=== PATIENT | male | born 1995 | race Caucasian/White ===

== ENCOUNTER 2017-01-20 20:12 | Emergency (ER) | payer OTHER ==
[~2017-01-20] VITALS: Ht 177.8 cm; Wt 79.0 kg
[2017-01-20 20:16] VITALS: Ht 177.8 cm; Wt 79.0 kg
[2017-01-20] MEDS ORDERED: SOD CHLORIDE 0.9% 1,000 ML IV STA (21:01)
[2017-01-20] MEDS ORDERED: ONDANSETRON 4 MG INJ IV STA (21:01)
[2017-01-20] MEDS ORDERED: KETOROLAC 30 MG INJ IV STA (21:01)
--- NOTE | 2017-01-20 21:19 | ERD ---
ER Documentation Chief Complaint Date/Time DATE: 01/20/17 TIME: 21:11 Chief Complaint fever/headache/sore throat x 2 days HPI This is a 21-year-old male who presents to the emergency department for complaints of fever, sore throat, mild cough, ear pressure and headache which began 2 days ago. He states the headache diffuse, throbbing, and is worse when bending down. Patient states that his throat pain as a constant sharp 5 out of 10 which is worse with swallowing. He is attempted to treat his fever with Tylenol at home. Last dose was this morning. Patient also reports sharp intermittent right lower quadrant abdominal pain which also began 2 days ago and was sudden in onset. He states that he has never experienced abdominal pain previously and denies any past abdominal surgeries. Patient denies any nausea, vomiting, diarrhea,dysuria, hematuria, or bloody stool. ROS All systems reviewed and are negative except as per history of present illness. Allergies Allergies: Coded Allergies: No Known Drug Allergies (Verified Allergy, Unknown, 01/20/17) PMhx/Soc Medical and Surgical Hx: pt denies Medical Hx, pt denies Surgical Hx Hx Alcohol Use: No Hx Substance Use: No Hx Tobacco Use: No Smoking Status: Never smoker Physical Exam Vitals Vital Signs Date Time Temp Pulse Resp B/P Pulse Ox O2 Delivery O2 Flow Rate FiO2 01/20/17 20:16 102.5 109 20 127/68 99 Physical Exam Const: Well-developed, well-nourished, in no acute distress Head: Atraumatic. Patient has full range of motion at cervical spine. No evidence of meningismus. Eyes: Normal Conjunctiva ENT: Normal External Ears, Nose and Mouth. Posterior pharynx markedly erythematous with bilateral 1+ tonsil edema and exudate bilaterally. Painful right sided anterior lymphadenopathy. Neck: Full range of motion..~ No meningismus. Resp: Clear to auscultation bilaterally, no wheezes, rhonchi, or Cardio: Regular rate and rhythm, no murmurs Abd: Soft, mild tenderness to palpation along the right lower quadrant. No rebound tenderness. No peritoneal signs. Negative Ignacio sign. non distended. Normal bowel sounds Skin: No petechiae or rashes Back: No midline or flank tenderness Ext: No cyanosis, or edema Neur: Awake and alert Psych: Normal Mood and Affect Result Diagram: [id number] Results 24 hrs Laboratory Tests Test 01/20/17 21:00 01/20/17 21:15 Urine Color YELLOW Urine Clarity CLEAR Urine pH 5.0 Urine Specific [place] 1.028 Urine Ketones NEGATIVEmg/dL Urine Nitrite NEGATIVEmg/dL Urine Bilirubin NEGATIVEmg/dL Urine Urobilinogen 2+mg/dL Urine Leukocyte Esterase NEGATIVELeu/ul Urine Microscopic RBC 3/HPF Urine Microscopic WBC 0/HPF Urine Mucus FEW/HPF Urine Hemoglobin 1+mg/dL Urine Glucose NEGATIVEmg/dL Urine Total Protein NEGATIVEmg/dl White Blood Count 7.410^3/ul Red Blood Count 5.2110^6/ul Hemoglobin 16.5g/dl Hematocrit 47.1% Mean Corpuscular Volume 90.4fl Mean Corpuscular Hemoglobin 31.7pg Mean Corpuscular Hemoglobin Concent 35.0g/dl Red Cell Distribution Width 12.8% Platelet Count 01337^3/UL Mean Platelet Volume 9.4fl Neutrophils % 62.1% Lymphocytes % 25.8% Monocytes % 11.1% Eosinophils % 0.1% Basophils % 0.4% Neutrophils # 4.610^3/ul Lymphocytes # 1.910^3/ul Monocytes # 0.810^3/ul Eosinophils # 0.010^3/ul Basophils # 0.010^3/ul Nucleated Red Blood Cells # 0.010^3/ul Prothrombin Time 12.2Sec Prothrombin Time Ratio 1.0 INR International Normalized Ratio 0.91 Activated Partial Thromboplast Time 38.2Sec Sodium Level 142mmol/L Potassium Level 4.0mmol/L Chloride Level 97mmol/L Carbon Dioxide Level 28mmol/L Anion Gap 21 Blood Urea Nitrogen 15mg/dl Creatinine 0.98mg/dl Glucose Level 96mg/dl Lactic Acid Level 1.1mmol/L Calcium Level 8.9mg/dl Total Bilirubin 0.8mg/dl Direct Bilirubin 0.00mg/dl Indirect Bilirubin 0.8mg/dl Aspartate Amino Transf (AST/SGOT) 25IU/L Alanine Aminotransferase (ALT/SGPT) 39IU/L Alkaline Phosphatase 93IU/L Total Protein 7.8g/dl Albumin 4.6g/dl Globulin 3.20g/dl Albumin/Globulin Ratio 1.43 Lipase 22U/L Current Medications Medications (Trade) Dose Ordered Sig/Ryan Route PRN Reason Start Time Stop Time Status Last Admin Dose Admin Sodium Chloride (NS) 1,000 ml @ 1,000 mls/hr Q1H STAT IV 01/20/17 21:01 01/20/17 22:00 DC 01/20/17 21:29 Ondansetron HCl (Zofran Inj) 4 mg ONCE STAT IV 01/20/17 21:01 01/20/17 21:07 DC 01/20/17 21:30 Ketorolac Tromethamine (Toradol) 30 mg ONCE STAT IV 01/20/17 21:01 01/20/17 21:07 DC 01/20/17 21:30 Procedures/MDM PROCEDURE: CT ABDOMEN/PELVIS WITHOUT CONTRAST CLINICAL INDICATION: 21-year-old male with right lower quadrant pain. TECHNIQUE: The study was performed utilizing a [employer] 64-slice CT scanner. Direct axial sections were obtained through the abdomen and pelvis without the use of intravenous contrast material. Sagittal and coronal reformations were obtained. One or more of the following dose reduction techniques were utilized: automated exposure control, adjustment of the mA and/ or kV according to patient's size or use of iterative reconstruction technique. The images were reviewed on a PACS workstation. CTD/vol = 10.6 mGy; Total Exam DLP = 624.1 mGy-cm. COMPARISON: None. FINDINGS: The lung bases are unremarkable. There is no evidence for significant pleural effusion. The liver has a normal size and contour without focal areas of abnormal density. No intrahepatic nor extrahepatic biliary ductal dilatation is seen. The gallbladder demonstrates no wall thickening nor pericholecystic fluid. No biliary stones are evident. The pancreas is without areas of abnormal attenuation. The spleen is identified and has a normal size without abnormal density. The adrenal glands are unremarkable. The kidneys are without abnormal density. No hydroureteronephrosis nor nephroureterolithiasis is evident. The urinary bladder contains a small volume of urine. There is no evidence for bowel obstruction. The appendix is visualized and is without abnormal thickening or surrounding inflammatory reaction. There is no significant free fluid. The prostate is not enlarged. The aortoiliac vessels are without aneurysmal dilatation. The osseous structures are intact. IMPRESSION: Unremarkable noncontrast CT scan of the abdomen and pelvis. .John Lawson MD, MD Date Time Electronically viewed and signed by .John Lawson MD, MD on 01/20/2017 22:39 .M/ CC: SEBASTIAN BIRMINGHAM PA-C This is a 21-year-old male presents the emergency department for complaints of fever, headache, sore throat, and right lower quadrant abdominal pain which began 2 days ago. Upon arrival, patient's temperature was measured at 102.5, his pulse was 109 and patient was flagged for SIRS. He was normotensive and non -hypoxic. Patient was well nourished and nontoxic appearing upon arrival. Physical exam was significant for pharyngeal erythema, tonsillar swelling, and exudate bilaterally as well as anterior painful lymphadenopathy. Patient also displayed right lower quadrant tenderness upon initial exam. Fluids were initiated immediately after exam. Patient received a bolus while awaiting lab results. Lactic acid measured 1.1 and therefore code sepsis was not initiated. CBC showed no evidence of systemic infection or severe anemia. CMP showed no evidence of electrolyte abnormalities, severe acidosis, alkalosis , renal failure, or liver disease. Lipase showed no evidence of acute pancreatitis. UA showed no evidence of acute infection or hematuria. CT of the abdomen and pelvis was unremarkable for any evidence of acute appendicitis or other abnormality. Upon reexamination, patient reports improvement of symptoms and abdominal tenderness has decreased. At this time low suspicion for acute appendicitis or other surgical abdomen however I discussed with the patient at length return precautions and recommended to return for an abdominal recheck if pain with fever should continue. The patient's clinical presentation is consistent with bacterial pharyngitis, fever, and abdominal pain of unknown etiology. The patient does not exhibit any clinical signs or symptoms concerning for serious bacterial infection or systemic illness. Based on history and clinical exam findings the patient does not appear to have evidence of pneumonia, urinary tract infection, bacteremia, sepsis, or meningitis. The patient's headache is unlikely related to serious etiology. He stated a mild intermittent headache which is worse when bending down. The patient does not exhibit any clinical signs or symptoms, and has no risk factors to suggest headache etiology such as subarachnoid hemorrhage, acute vertebral or carotid dissection, intracranial mass, epidural, subdural hematoma, dural venous sinus thrombosis, giant cell arteritis, or pseudotumor cerebri. Patient's neuro exam unremarkable. Headache likely due to sinus congestion. Patient to begin antibiotics for suspected bacterial pharyngitis. Continue Motrin and Tylenol for fever and symptom control. Based on patient's history of present illness and physical examination the decision was made to discharge. The patient was re-evaluated after ED treatment and stabilizing measures, and symptoms have improved. There is no evidence of life threatening injuries or illnesses at this time. On re-examination, patient resting in no distress, stable vital signs, reports feeling better and safe for discharge with outpatient follow up with PMD in 1-2 days. Patient given return precautions. All lab and imaging reports provided to the patient. Departure Diagnosis: Primary Impression: Fever Fever type: unspecified Qualified Code: R50.9 - Fever, unspecified fever cause Additional Impressions: Sore throat Abdominal pain Abdominal location: right lower quadrant Qualified Code: R10.31 - Right lower quadrant abdominal pain Headache Headache type: unspecified Headache chronicity pattern: acute headache Intractability: not intractable Qualified Code: R51 - Acute nonintractable headache, unspecified headache type SEBASTIAN BIRMINGHAM PA-C Jan 20, 2017 21:19
[2017-01-20 21:50] LABS: ADD SCAN DIFF NO
[2017-01-20 21:58] LABS: ADD UMIC YES; UR ASCORBIC ACID NEGATIVE (NEGATIVE); UR BILIRUBIN (Dip) NEGATIVE (NEGATIVE); UR BLOOD (Dip) 1+ mg/dL (NEGATIVE); UR CLARITY CLEAR (CLEAR); UR COLOR YELLOW (YELLOW); UR GLUCOSE (Dip) NEGATIVE (NEGATIVE); UR KETONES (Dip) NEGATIVE (NEGATIVE); UR LEUKOCYTE ESTERASE (Dip) NEGATIVE Leu/ul (NEGATIVE); UR MUCUS FEW /HPF (NONE SEEN); UR NITRITE (Dip) NEGATIVE (NEGATIVE); UR RBC 3 /HPF (0-5); UR SPECIFIC GRAVITY (Dip) 1.028 (1.003-1.030); UR TOTAL PROTEIN (Dip) NEGATIVE (NEGATIVE); UR UROBILINOGEN (Dip) 2+ mg/dL (NEGATIVE)
[2017-01-20 21:58] LABS: BASOPHILS % 0.4 % (0.0-2.0); EOSINOPHILS % 0.1 % (0.0-7.0); HEMATOCRIT 47.1 % (42.0-52.0); HEMOGLOBIN 16.5 g/dl (14.0-18.0); LYMPHOCYTES # 1.9 10^3/ul (0.8-2.9); LYMPHOCYTES % 25.8 % (15.0-51.0); MEAN CORPUSCULAR HEMOGLOBIN 31.7 pg (29.0-33.0); MEAN CORPUSCULAR VOLUME 90.4 fl (82.0-101.0); MEAN PLATELET VOLUME 9.4 fl (7.4-10.4); MONOCYTE # 0.8 10^3/ul (0.3-0.9); MONOCYTES % 11.1 % (0.0-11.0); NEUTROPHIL # 4.6 10^3/ul (1.6-7.5); NEUTROPHILS % 62.1 % (39.0-77.0); PLATELET COUNT 205 10^3/UL (140-415); RED BLOOD COUNT 5.21 10^6/ul (4.70-6.10); RED CELL DISTRIBUTION WIDTH 12.8 % (11.5-14.5); WHITE BLOOD COUNT 7.4 10^3/ul (4.8-10.8)
[2017-01-20 22:11] LABS: INR 0.91; PROTIME 12.2 Sec (12.2-14.2)
[2017-01-20 22:12] LABS: PARTIAL THROMBOPLASTIN TIME 38.2 Sec (25.0-35.0)
[2017-01-20 22:15] LABS: ALBUMIN 4.6 g/dl (3.3-4.9); ALBUMIN/GLOBULIN RATIO 1.43; BILIRUBIN,INDIRECT 0.8 mg/dl (0-1.1); BILIRUBIN,TOTAL 0.8 mg/dl (0.2-1.3); CALCIUM 8.9 mg/dl (8.4-10.2); CREATININE 0.98 mg/dl (0.61-1.24); TOTAL PROTEIN 7.8 g/dl (6.1-8.1)
--- NOTE | 2017-01-20 22:40 | RADRPT ---
PROCEDURE: CT ABDOMEN/PELVIS WITHOUT CONTRAST CLINICAL INDICATION: 21-year-old male with right lower quadrant pain. TECHNIQUE: The study was performed utilizing a [employer] VCT 64-slice CT scanner. Direct axia l sections were obtained through the abdomen and pelvis without the use of intravenous contrast mate rial. Sagittal and coronal reformations were obtained. One or more of the following dose reduction t echniques were utilized: automated exposure control, adjustment of the mA and/or kV according to pat ient's size or use of iterative reconstruction technique. The images were reviewed on a PACS workst [employer]. CTD/vol = 10.6 mGy; Total Exam DLP = 624.1 mGy-cm. COMPARISON: None. FINDINGS: The lung bases are unremarkable. There is no evidence for significant pleural effusion. The liver has a normal size and contour without focal areas of abnormal density. No intrahepatic nor extrahepa tic biliary ductal dilatation is seen. The gallbladder demonstrates no wall thickening nor perichole cystic fluid. No biliary stones are evident. The pancreas is without areas of abnormal attenuation. The spleen is identified and has a normal size without abnormal density. The adrenal glands are unr emarkable. The kidneys are without abnormal density. No hydroureteronephrosis nor nephroureterolithi asis is evident. The urinary bladder contains a small volume of urine. There is no evidence for starr l obstruction. The appendix is visualized and is without abnormal thickening or surrounding inflamm atory reaction. There is no significant free fluid. The prostate is not enlarged. The aortoiliac v essels are without aneurysmal dilatation. The osseous structures are intact. IMPRESSION: Unremarkable noncontrast CT scan of the abdomen and pelvis. .John Lawson MD, MD Date Time Electronically viewed and signed by .John Lawson MD, MD on 01/20/2017 22:39 .M/
[2017-01-20] MEDS ORDERED: AMO500 PO (22:55)
[2017-01-20] MEDS ORDERED: ACET325T33 PO (22:55)
[2017-01-20] MEDS ORDERED: NAPR-260 PO (22:55)
[2017-01-20 23:42] VITALS: BP 119/55; PULSE 68; RESP 20; TEMP 98.8
== END 2017-01-20 23:35 | disposition home or self-care (01) ==
LOC: FTE 20:12
DX: R50.9 Fever, unspecified (principal); J02.9 Acute pharyngitis, unspecified; R10.31 Right lower quadrant pain; R51 Headache
CPT/HCPCS: 36415; 74176; 80053; 81001; 83605; 83690; 85025; 85610; 85730; 87040; 87086; 96374; 96375; J1885; J2405; J7030; Z7502